=== PATIENT | male | born 1995 | race Hispanic/Latino ===

== ENCOUNTER 2016-08-26 21:42 | Emergency (ER) | payer OTHER ==
[~2016-08-26] VITALS: Ht 170.2 cm; Wt 69.9 kg
[2016-08-26 21:46] VITALS: BP 139/92; PULSE 81; RESP 16; O2SAT 99
--- NOTE | 2016-08-26 22:08 | ED.REPORT ---
HPI-Abd Pain M Under 38 Date of Service Aug 26, 2016 ED Provider: Cornelius Bowen MD Patient is a 21 year old male who presents to the ED complaining of constipation after not having a bowel movement in 2 days. Patient states that he has been dealing with constipation for some time and last had a small bowel movement. Patient reports associated abdominal pain but denies the sensation of needing to have a bowel movement. He reports associated nausea but denies vomiting. Patient was seen at Urgent Care yesterday and prescribed Magnesium Citrate. He consumed the Magnesium Citrate at 1pm today, in addition to Metamucil and prune juice. However this has not provoked him to have a bowel movement. Nursing Notes Stated Complaint: ABDOMINAL PAIN Chief Complaint: Male Abdominal Pain Nursing Notes Reviewed: Yes Allergies: Uncoded Allergies: AMOXICILLIN (Allergy, Unknown, 08/26/16) Scheduled PRN Polyethylene Glycol 3350 (Miralax) 17 Gm Powd.pack 17 GM PO TID PRN PRN For Constipation General Time Seen by MD: 22:07 Chief Complaint Abdominal pain, Constipation Hx Obtained From: Patient Arrived By: Walk-in Sudden in Onset?: No Onset Occurred: 2 days ago Symptom Duration: Since onset Progression since Onset: Gradually worsening Location: : Diffuse Quality: Painful Severity: Current: Mild Severity: Maximum: Moderate Recent Healthcare: No recent doctor visit, No recent hospitalization Similar Sx Previous: No Past Medical History Past Medical History constipation Past Surgical History none reported Smoking History Former Smoker Social History Alcohol Use: "Social" Other Social History: Good social support, Local resident Ambulatory Status Independent Review of Systems Constitutional: Denies: Chills, Fever GI: Reports: Abdominal pain, Constipation, Nausea, Denies: Vomiting Complete sys rev & neg: except as marked. Physical Exam Initial Vital Signs Vital Signs (First) Date Time Temp Pulse Resp B/P Pulse Ox O2 Delivery O2 Flow Rate FiO2 08/26/16 21:46 36.8 81 16 139/92 99 Room Air Initial VS: Reviewed, Vital signs abnormal Head / Eyes: Atraumatic, Normocephalic, PERRL ENT: Conjunctiva normal, No scleral icterus Neck: Supple, Full range of motion Skin: Warm, Dry, No cyanosis Neurologic: Alert, Oriented, Nonfocal Psychiatric: Mood/affect normal, Behavior normal, Normal thought content General/Constitutional: Awake, Alert, No acute distress Respiratory / Chest: Breath sounds NL, Breath sounds = bilat, No respiratory distress, No rales, No rhonchi, No wheezing Cardiovascular: Heart rate NL, Regular rhythm, Heart sounds NL, No murmurs Abdomen: Soft, Non-tender, No guarding, No rebound Bowel Sounds / Distention: Positive: Bowel sounds hyperactive Back: Painless range of motion, No CVA tenderness Rectum / Perineum: No gross blood, No fecal impaction (rectal vault is empty), No hemorrhoids Re-Eval/Medical Decision Med Decision/Clinical Course 21-year-old with several days of constipation. He was seen in urgent care and given mag citrate and Metamucil. The magnesium citrate was used several hours ago and has not produced any results. Rectal examination revealed no fecal impaction. He did report on discharge that there had been a trace of blood in his stool, but there was no blood on the rectal exam grossly. He was given bisacodyl and and a dose of MiraLAX. He will continue the MiraLAX up to 3 times a day as needed to produce a bowel movement. Then he will start the Metamucil to maintain consistency. Source of Hx: Old records Re-Evaluation/Progress : Time of Eval: 22:55 Patient Status: Condition improved Re-Evaluation/Progress Note: Patient understands and agrees with the plan to be discharged home. Patient now disclosed that he has a small amount of blood on the tissue when he wipes. 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 Discussed treatment for his constipation. Discharge instructions and follow-up discussed. All questions were addressed. Return to the ED warnings given. Counseled Regarding: Diagnosis, Need for follow-up, When/why to return to ED Patient Discharge & Departure Primary Impression: Constipation Constipation type: unspecified constipation type Qualified Code: K59.00 - Constipation, unspecified Disposition: Home Discharge Condition All VS Reviewed: Yes Condition: Stable Patient Instructions: Constipation (ED) Additional Instructions: Your bowel sounds are very active right now, indicating that the magnesium citrate is working and you will likely have a bowel movement soon. You were given dulcolax (bisacodyl) which will assist in that process. Additionally MiraLAX 17 g in 8 ounces of liquid now and repeat from 1-3 times daily until you have normal consistency bowel movements. Once the acute problem is over you can use Metamucil to establish regular soft bowel movements. Referrals: [facility] Scribe Attestation Portions of this note were transcribed by Vijaya Goncalves. I, Dr. Bowen personally performed the history, physical exam and medical decision-making; I reviewed and confirmed the accuracy of the information in the transcribed note. Signed by: Sivan Holland, 08/26/2016 [id number] Cornelius Bowen MD Aug 26, 2016 22:08 Vijaya Goncalves Aug 26, 2016 22:21
[2016-08-26] MEDS ORDERED: POLY17PO6 PO (23:06)
[2016-08-26 23:25] VITALS: BP 122/78; PULSE 75; O2SAT 100
[2016-08-27] MEDS ORDERED: Polyethylene Glycol (PEG) 17 Gm Powder PO SCH (08:30)
== END 2016-08-26 23:27 | disposition home or self-care (01) ==
LOC: SED 21:42
DX: K59.00 Constipation, unspecified (principal); Z87.891 Personal history of nicotine dependence; Z88.1 Allergy status to other antibiotic agents